=== PATIENT | female | born 1985 | race African-American/Black ===

== ENCOUNTER 2021-10-23 20:03 | Emergency (ER) | payer MEDICAID ==
[~2021-10-23] VITALS: Ht 165.1 cm; Wt 5.0 kg
[2021-10-24] MEDS: ACETAMINOPHEN 325MG TABLET PO STA (02:16)
[2021-10-24 03:21] LABS: BASOPHILS % 0.3 % (0.0-2.0); EOSINOPHILS % 1.2 % (0.0-5.0); HEMOGLOBIN. 12.2 g/dL (12.0-16.0); LYMPHOCYTES % 44.4 % (20.0-50.0); MEAN CORPUSCULAR VOLUME 82.4 fL (81.0-99.0); MEAN PLATELET VOLUME 8.7 fl (7.4-10.4); MONOCYTES % 7.8 % (2.0-8.0); NEUTROPHILS % 46.3 % (40.0-76.0); PLATELET 241 x1000/uL (130-400); RED BLOOD CELL COUNT 4.49 mill/uL (4.2-5.4); RED CELL DISTRIBUTION WIDTH 12.3 % (11.6-14.6)
[2021-10-24 03:40] LABS: CHLORIDE 103 mEq/L (98-107)
[2021-10-24 03:49] LABS: CLARITY URINE CLEAR (CLEAR); COLOR URINE YELLOW (YELLOW); KETONES URINE NEGATIVE (NEGATIVE); LEUKOCYTE ESTERASE URINE 2+ (NEGATIVE); NITRITE URINE NEGATIVE (NEGATIVE); OCCULT BLOOD URINE NEGATIVE (NEGATIVE); PROTEIN URINE NEGATIVE (NEGATIVE); UROBILINOGEN URINE 0.2 E.U./dL (0.2-1.0)
[2021-10-24] MEDS: CEPHALEXIN 250MG CAPSULE PO ONE (04:00)
[2021-10-24 04:01] LABS: B-HCG QUANTITATIVE 138844 mIU/mL (<3)
[2021-10-24] MEDS ORDERED: CEPH500T MT (04:01)
[2021-10-24 04:30] VITALS: BP 128/67
[2021-10-25] MEDS ORDERED: CEPH500T MT (18:00)
== END 2021-10-24 05:02 | disposition home or self-care (01) ==
LOC: ER 20:03
DX: O23.41 Unspecified infection of urinary tract in pregnancy, first trimester (principal); N39.0 Urinary tract infection, site not specified; Z3A.10 10 weeks gestation of pregnancy
CPT/HCPCS: 36415; 76801; 80053; 81003; 81025; 84702; 85025; 99285

== ENCOUNTER 2022-03-02 16:57 | Observation (INO) | payer MEDICAID ==
[~2022-03-02] VITALS: Ht 165.1 cm; Wt 78.5 kg
[~2022-03-02 16:57] MED LIST: CEPH500T MT
== END 2022-03-02 19:00 | disposition home or self-care (01) ==
LOC: 8 EST A/PP 16:57
PROVIDERS: ADMIT Specialist; ATTEND Specialist
DX: O36.0131 Maternal care for anti-D [Rh] antibodies, third trimester, fetus 1 (principal); O36.8930 Maternal care for other specified fetal problems, third trimester, not applicable or unspecified; Z3A.29 29 weeks gestation of pregnancy
CPT/HCPCS: 36415; 86850; 86900; 90384; 96372; 99281; G0378; J2791